=== PATIENT | male | born 1985 | race Caucasian/White ===

== ENCOUNTER 2022-10-15 05:38 | Emergency (ER) | payer OTHER ==
[2022-10-15] MEDS ORDERED: Proparacaine 0.5% Opth 15 ML BOT ONE (06:04)
[2022-10-15] MEDS ORDERED: Fluorescein Opthalmic Strip ONE (06:06)
[2022-10-15] MEDS ORDERED: Ibuprofen 800 MG TAB ONE (06:24)
== END 2022-10-15 07:00 | disposition home or self-care (01) ==
LOC: ERS 05:38
DX: S05.02XA Injury of conjunctiva and corneal abrasion without foreign body, left eye, initial encounter (principal); I10 Essential (primary) hypertension; Z79.899 Other long term (current) drug therapy; W01.198A Fall on same level from slipping, tripping and stumbling with subsequent striking against other object, initial encounter
CPT/HCPCS: 99283